=== PATIENT | male | born 1955 | race Caucasian/White ===

== ENCOUNTER 2024-09-16 10:52 | Outpatient (RCR) | payer MEDICARE, SELFPAY ==
[2024-09-16 11:37] LABS: Creatinine* 1.1 mg/dL (0.5-1.5); Est. Creatinine Clearance* 60.45; Estimated Glomerular Filt Rate 72 ml/min
--- NOTE | 2024-10-11 08:21 | ONC.NURNOTE ---
Dx: Prostate cancer
== END 2025-03-15 23:59 | disposition home or self-care (01) ==
LOC: CCIC 10:52
PROVIDERS: Internal Medicine; Visit Provider Clinical Nurse Specialist
DX: C61 Malignant neoplasm of prostate (principal)
CPT/HCPCS: 36415; 82565; 99211